=== PATIENT | male | born 1960 | race Hispanic/Latino ===

== ENCOUNTER 2022-08-06 20:23 | Emergency (ER) | payer BC, OTHER ==
[~2022-08-06] VITALS: Ht 167.6 cm; Wt 73.0 kg
[2022-08-06 23:35] VITALS: BP 158/80
[2022-08-06] MEDS ORDERED: LIDOCAINE HCL-MPF 2% 5ML VIAL ONE (23:41)
[2022-08-07] MEDS ORDERED: CEPH500B PO (00:13)
== END 2022-08-07 00:23 | disposition home or self-care (01) ==
LOC: EDH 20:23
DX: S81.812A Laceration without foreign body, left lower leg, initial encounter (principal); W26.8XXA Contact with other sharp object(s), not elsewhere classified, initial encounter; Y93.89 Activity, other specified; Y92.89 Other specified places as the place of occurrence of the external cause; Y99.0 Civilian activity done for income or pay
CPT/HCPCS: 99283; 12004; J3490